=== PATIENT | male | born 1990 | race Two or more races ===

== ENCOUNTER 2018-10-11 11:07 | Emergency (ER) | payer SELFPAY ==
[~2018-10-11] VITALS: Ht 167.6 cm; Wt 88.5 kg
[2018-10-11 11:31] VITALS: BP 147/105
--- NOTE | 2018-10-11 11:43 | PHYS DOC ---
Adult General Chief Complaint Chief Complaint: LACERATION/AVULSION HPI HPI Patient is a 28 year old male presents after he was cutting a tree branch and lowered the chainsaw down to his left knee and the chainsaw cut part of his left knee. The patient rates his pain as 4 out of 10 in severity is not taking medicine prior to arrival. Patient states that this happened about 1 hour prior to arrival. Denies any numbness tingling denies any pain while walking. Review of Systems Review of Systems Constitutional: Denies fever or chills [] Eyes: Denies change in visual acuity, redness, or eye pain [] HENT: Denies nasal congestion or sore throat [] Respiratory: Denies cough or shortness of breath [] Cardiovascular: No additional information not addressed in HPI [] GI: Denies abdominal pain, nausea, vomiting, bloody stools or diarrhea [] : Denies dysuria or hematuria [] Musculoskeletal: Denies back pain or joint pain [] Integument: Laceration to L knee. Neurologic: Denies headache, focal weakness or sensory changes [] Endocrine: Denies polyuria or polydipsia [] Complete systems were reviewed and found to be within normal limits, except as documented in this note. Current Medications Current Medications Current Medications Medications (Trade) Dose Ordered Sig/Marie Start Time Stop Time Status Last Admin Dose Admin Diphtheria/ Tetanus/Acell Pertussis (Boostrix) 0.5 ml ONCE ONCE 10/11/18 12:30 10/11/18 12:31 DC Lidocaine HCl 20 ml 1X ONCE 10/11/18 11:45 10/11/18 11:46 DC 10/11/18 12:03 20 ML Allergies Allergies Allergies Coded Allergies Type Severity Reaction Last Updated Verified No Known Drug Allergies 10/11/18 No Physical Exam Physical Exam Constitutional: Well developed, well nourished, no acute distress, non-toxic appearance. [] HENT: Normocephalic, atraumatic, bilateral external ears normal, oropharynx moist, no oral exudates, nose normal. [] Eyes: PERRLA, EOMI, conjunctiva normal, no discharge. [] Neck: Normal range of motion, no tenderness, supple, no stridor. [] Cardiovascular:Heart rate regular rhythm, no murmur [] Lungs & Thorax: Bilateral breath sounds clear to auscultation [] Abdomen: Bowel sounds normal, soft, no tenderness, no masses, no pulsatile masses. [] Skin: Laceration to L knee. The laceration is 2 cm in length and mangled. Back: No tenderness, no CVA tenderness. [] Extremities: No tenderness, no cyanosis, no clubbing, ROM intact, no edema. [] Neurologic: Alert and oriented X 3, normal motor function, normal sensory function, no focal deficits noted. [] Psychologic: Affect normal, judgement normal, mood normal. [] Current Patient Data Vital Signs Vital Signs Date Time Temp Pulse Resp B/P (MAP) Pulse Ox O2 Delivery O2 Flow Rate FiO2 10/11/18 11:31 98.8 85 18 147/105 (119) 97 Room Air 98.8 EKG EKG [] Radiology/Procedures Radiology/Procedures Indication: Laceration Procedure: The patient was placed in the appropriate position and anesthesia around the 2% lidocaine. The area was then cleansed with 120 Ml of copious irrigation.. The laceration was loosely closed with 3 3-0 Ethilon sutures. The wound area was then dressed with neosporin and bandage. Total repaired wound length: 2 cm The patient tolerated the procedure [TOLERATED]. Complications: None [][facility] [address] [place] [address] IMAGING REPORT Signed PATIENT: GERMAIN VAUGHN ACCOUNT: [id number] : 1990 LOCATION: ER AGE: 28 SEX: M EXAM STATUS: REG ER ORD. PHYSICIAN: PHILIPP COREY APRN REASON: chainsaw to knee, laceration, pain PROCEDURE: KNEE LEFT 3V KNEE LEFT 3V History: Chainsaw to the knee with laceration and pain Comparison: None. Findings: 3 views of the left knee are submitted. No acute fracture or dislocation is identified. No radiopaque foreign body is identified. Impression: 1. No acute radiographic abnormality is identified. Electronically signed by: Theresa Cohen MD (10/11/2018 12:04 PM) [id number] DICTATED and SIGNED BY: THERESA COHEN MD DATE: 10/11/18 5738 Course & Med Decision Making Course & Med Decision Making Pertinent Labs and Imaging studies reviewed. (See chart for details) Will get xray of L knee. Will loosely approximate the laceration of the knee. Dragon Disclaimer Dragon Disclaimer This electronic medical record was generated, in whole or in part, using a voice recognition dictation system. Departure Departure Impression: Primary Impression: Laceration Disposition: HOME, SELF-CARE Condition: STABLE Referrals: NO PCP (PCP) Patient Instructions: Laceration Care, Adult Additional Instructions: Thank you for visiting [facility]. We appreciate you trusting us with your care. If any additional problems come up don't hesitate to return to visit us. Please follow up with your primary care provider so they can plan additional care if needed and know about the problem that you had. If symptoms worsen come back to the Emergency Department. Any concerning symptoms that start such as chest pain, shortness of air, weakness or numbness on one side of the body, running high fevers or any other concerning symptoms return to the ER. Please have sutures removed in 7-10 days. Please fill your medications at any pharmacy and follow the prescription instructions. You have been prescribed an antibiotic today to help fight your infection. Please take all of the antibiotic as directed. If after 48 hours the infection is not improving, please return for more care. If the infection worsens, return to ER for additional care. Scripts Cephalexin (KEFLEX) 500 Mg Capsule 1 CAP PO BID for 7 Days, #14 CAP Prov: PHILIPP COREY APRN 10/11/18 PHILIPP COREY APRN Oct 11, 2018 11:43
[2018-10-11] MEDS ORDERED: LIDOCAINE 2% 20 ML VIAL. IJ ONE (11:45)
--- NOTE | 2018-10-11 12:06 | RAD ---
KNEE LEFT 3V History: Chainsaw to the knee with laceration and pain Comparison: None. Findings: 3 views of the left knee are submitted. No acute fracture or dislocation is identified. No radiopaque foreign body is identified. Impression: 1. No acute radiographic abnormality is identified. Electronically signed by: Michael Brand MD (10/11/2018 12:04 PM) [id number]
[2018-10-11] MEDS ORDERED: CEPH-264 PO (12:19)
[2018-10-11] MEDS ORDERED: DIPHTH,PERTUSS(ACELL),TET TOX 0.5 ML DISP.SYRIN. VAX IM ONE (12:30)
[2018-10-11] MEDS ORDERED: NEOMY/BACITR/POLYMYXIN OINT PACKET. TP ONE (13:00)
== END 2018-10-11 13:22 | disposition home or self-care (01) ==
LOC: ER 11:07
DX: S81.012A Laceration without foreign body, left knee, initial encounter (principal); W27.8XXA Contact with other nonpowered hand tool, initial encounter; Y93.89 Activity, other specified; Y92.89 Other specified places as the place of occurrence of the external cause; Y99.8 Other external cause status
CPT/HCPCS: 12001; 73562; 90471; 90715; 99284; J2001